=== PATIENT | female | born 1955 | race Caucasian/White ===

== ENCOUNTER 2019-07-22 18:04 | Emergency (ER) | payer OTHER ==
[~2019-07-22] VITALS: Ht 170.2 cm; Wt 81.6 kg
[2019-07-22] MEDS ORDERED: LIDOCAINE 1% (LOCAL ANESTH.) PF 5ml SDV ID ONE (20:15)
[2019-07-22] MEDS ORDERED: BACITRACIN TOP OINT 1 UD PKG TOP ONE (20:15)
[2019-07-22] MEDS ORDERED: LIDOCAINE 1% HCL (LOCAL ANESTH.) INJ 20ML MDV ONE (20:18)
[2019-07-22] MEDS ORDERED: KETOROLAC TROMETH 60MG/2ML VIAL IM ONE (23:00)
[2019-07-22] MEDS ORDERED: THIAMINE 100mg/ml INJ (200mg/2ml VIAL) IM ONE (23:15)
[2019-07-22] MEDS ORDERED: HYDROmorphone HCL 2 MG/ML VL IM ONE (23:15)
[2019-07-22 23:45] LABS: Basophils # (auto) 0.1 10 ^3/uL (0-0.2); Basophils % (auto) 0.8 % (0.0-2.0); Eosinophils # (auto) 0 10 ^3/uL (0-0.8); Eosinophils % (auto) 0.6 % (0.0-7.0); Hematocrit 42.5 % (36.0-46.0); Hemoglobin 14.2 g/dL (12.2-16.2); Lymphocytes # (auto) 1.5 10 ^3/uL (0.4-5.4); Mean Corpuscular Hemoglobin 36.9 pg (28.0-32.0); Mean Corpuscular Hgb Conc. 33.3 g/dL (32.0-36.0); Mean Corpuscular Volume 110.7 fL (80.0-100.0); Monocytes # (auto) 0.5 10 ^3/uL (0-1.3); Monocytes % (auto) 7.1 % (0.0-12.0); Neutrophils # (auto) 4.9 10 ^3/uL (1.6-8.6); Neutrophils % (auto) 70.5 % (37.0-80.0); Platelet Count (auto) 171 10^3/uL (140-450); Red Blood Cells 3.84 10^6/uL (4.0-5.20); Red Cell Distribution Width 14.7 % (11.8-14.3); White Blood Cell 6.9 10^3/uL (4.4-10.8)
[2019-07-23 00:01] LABS: INR 1.06 (0.9-1.15); Partial Thromboplastin Time 27.6 sec (23.64-32.05)
[2019-07-23 00:04] LABS: Albumin 3.7 g/dL (3.4-5.0); BUN/Creatinine Ratio 18.3; Calcium 8.5 mg/dL (8.5-10.1); Potassium 4.1 mmol/L (3.5-5.1)
[2019-07-23 00:07] LABS: Bilirubin, Total 1.4 mg/dL (0.2-1.0); Total Protein 7.4 g/dL (6.4-8.2)
[2019-07-23 01:14] VITALS: BP 148/94
== END 2019-07-23 01:40 | disposition short-term general hospital (02) ==
LOC: ER 18:04
DX: S01.81XA Laceration without foreign body of other part of head, initial encounter (principal); W22.8XXA Striking against or struck by other objects, initial encounter; Y93.89 Activity, other specified; Y92.89 Other specified places as the place of occurrence of the external cause; Y99.8 Other external cause status
CPT/HCPCS: 12013; 36415; 70450; 70486; 72125; 80053; 85025; 85610; 85730; 96372; 99285; J1170; J2001; J3411

== ENCOUNTER 2020-09-10 00:53 | Emergency (ER) | payer OTHER ==
[~2020-09-10] VITALS: Ht 167.6 cm; Wt 74.8 kg
[2020-09-10 02:41] LABS: Eosinophils # (auto) 0.4 10 ^3/uL (0-0.8); Hemoglobin 14.6 g/dL (12.2-16.2); Red Cell Distribution Width 14.8 % (11.8-14.3)
[2020-09-10 02:43] LABS: Basophils # (auto) 0.2 10 ^3/uL (0-0.2); Basophils % (auto) 2.5 % (0.0-2.0); Eosinophils % (auto) 4.8 % (0.0-7.0); Hematocrit 41.9 % (36.0-46.0); Lymphocytes # (auto) 2.8 10 ^3/uL (0.4-5.4); Lymphocytes % (auto) 35.1 % (10.0-50.0); Mean Corpuscular Hemoglobin 35.3 pg (28.0-32.0); Mean Corpuscular Hgb Conc. 34.8 g/dL (32.0-36.0); Mean Corpuscular Volume 101.6 fL (80.0-100.0); Monocytes # (auto) 0.5 10 ^3/uL (0-1.3); Monocytes % (auto) 6.3 % (0.0-12.0); Neutrophils % (auto) 51.3 % (37.0-80.0); Nucleated Red Blood Cells % 0.1 %; Platelet Count (auto) 302 10^3/uL (140-450); Red Blood Cells 4.13 10^6/uL (4.0-5.20); White Blood Cell 7.8 10^3/uL (4.4-10.8)
[2020-09-10] MEDS ORDERED: SODIUM CHLORIDE 0.9% 1,000 ML IV ONE ×3 (02:45→11:15)
[2020-09-10 03:01] LABS: Albumin 3.9 g/dL (3.4-5.0); BUN/Creatinine Ratio 11.7; Calcium 9.1 mg/dL (8.5-10.1); Potassium 4.2 mmol/L (3.5-5.1)
[2020-09-10 03:06] LABS: Bilirubin, Total 0.4 mg/dL (0.2-1.0); Total Protein 7.5 g/dL (6.4-8.2)
[2020-09-10 07:32] LABS: Amphetamine Screen, Urine NEGATIVE (NEGATIVE); Barbiturate Scree,Urine NEGATIVE (NEGATIVE); Benzodiazephine Screen, Urine NEGATIVE (NEGATIVE); Cannabinoid Screen, Urine NEGATIVE (NEGATIVE); Cocaine Screen, Urine NEGATIVE (NEGATIVE); Opiate Scree,Urine NEGATIVE (NEGATIVE); Phencyclidine Screen, Urine NEGATIVE (NEGATIVE)
[2020-09-10 12:15] VITALS: BP 131/98
== END 2020-09-10 12:21 | disposition home or self-care (01) ==
LOC: EDBD 00:53 → ER 00:59
DX: S51.011A Laceration without foreign body of right elbow, initial encounter (principal); F10.129 Alcohol abuse with intoxication, unspecified; Y90.9 Presence of alcohol in blood, level not specified; W19.XXXA Unspecified fall, initial encounter; Y93.89 Activity, other specified; Y92.89 Other specified places as the place of occurrence of the external cause; Y99.8 Other external cause status
CPT/HCPCS: 36415; 70450; 80053; 80307; 80320; 85025; 85049; 96360; 96361; 99285; J7030

== ENCOUNTER 2022-09-25 21:28 | Emergency (ER) | payer OTHER ==
[~2022-09-25] VITALS: Ht 165.1 cm; Wt 63.6 kg
[2022-09-25 22:00] VITALS: PULSE 101; RESP 34; O2SAT 93
[2022-09-25] MEDS ORDERED: SODIUM CHLORIDE 0.9% 1,000 ML IVB ONE (22:00)
[2022-09-25] MEDS ORDERED: ONDANSETRON HCL 4 MG/2 ML VIAL IV ONE (22:00)
[2022-09-25] MEDS ORDERED: fentaNYL CITRATE 100 MCG/2 ML VL IV ONE (22:00)
[2022-09-25] MEDS ORDERED: PANTOPRAZOLE 40 MG/10 ML VIAL INJ IV ONE (23:15)
[2022-09-25] MEDS ORDERED: PROPOFOL 10 MG/ML 20 ML IV ONE (23:15)
[2022-09-26] MEDS ORDERED: ceFAZolin 1GM/50ML 50 ML IV ONE
[2022-09-26 00:13] LABS: BUN/Creatinine Ratio 7.8 (10.0-20.0); Potassium 3.7 mmol/L (3.5-5.1)
[2022-09-26 00:14] LABS: Albumin 3.9 g/dL (3.4-5.0); Basophils # (auto) 0.1 10 ^3/uL (0-0.2); Basophils % (auto) 1.1 % (0.0-2.0); Bilirubin, Total 0.4 mg/dL (0.2-1.0); Calcium 8.8 mg/dL (8.5-10.1); Eosinophils # (auto) 0.2 10 ^3/uL (0-0.8); Eosinophils % (auto) 2.6 % (0.0-7.0); Hemoglobin 14.2 g/dL (12.2-16.2); Lymphocytes # (auto) 2.3 10 ^3/uL (0.4-5.4); Lymphocytes % (auto) 28.6 % (10.0-50.0); Magnesium 1.8 mg/dL (1.6-2.6); Mean Corpuscular Hemoglobin 33.2 pg (28.0-32.0); Mean Corpuscular Hgb Conc. 33.9 g/dL (32.0-36.0); Mean Corpuscular Volume 97.9 fL (80.0-100.0); Monocytes # (auto) 0.6 10 ^3/uL (0-1.3); Monocytes % (auto) 7.8 % (0.0-12.0); Neutrophils # (auto) 4.9 10 ^3/uL (1.6-8.6); Neutrophils % (auto) 59.9 % (37.0-80.0); Nucleated Red Blood Cells % 0.1 %; Red Blood Cells 4.29 10^6/uL (4.0-5.20); Red Cell Distribution Width 14.3 % (11.8-14.3); Total Protein 7.2 g/dL (6.4-8.2); White Blood Cell 8.2 10^3/uL (4.4-10.8)
[2022-09-26] MEDS ORDERED: TETANUS-DIPTH-ACEL PERTUSSIS 0.5ML SYR Tdap IM ONE (00:30)
[2022-09-26] MEDS ORDERED: fentaNYL CITRATE 100 MCG/2 ML VL IV ONE ×3 (00:45→05:45)
[2022-09-26 02:01] LABS: INR 0.99 (0.9-1.15); Partial Thromboplastin Time 32.4 SEC (24.5-34.5)
[2022-09-26 03:58] LABS: % Iron Saturation 22.4 % (15-50)
[2022-09-26 06:44] LABS: Urine Bacteria NONE SEEN /hpf (None Seen); Urine Blood Negative /uL (Negative); Urine Hyaline Cast MOD /lpf (0 - 2); Urine Mucus FEW (None Seen); Urine Specific Gravity 1.015 (1.001-1.035); Urine WBC 1 /hpf (0 - 5)
[2022-09-26 07:03] LABS: Amphetamine Screen, Urine NEGATIVE (NEGATIVE); Barbiturate Scree,Urine NEGATIVE (NEGATIVE); Cannabinoid Screen, Urine POSITIVE (NEGATIVE); Opiate Scree,Urine NEGATIVE (NEGATIVE); Phencyclidine Screen, Urine NEGATIVE (NEGATIVE)
[2022-09-26 07:10] LABS: Benzodiazephine Screen, Urine NEGATIVE (NEGATIVE); Cocaine Screen, Urine NEGATIVE (NEGATIVE)
[2022-09-26 08:00] VITALS: PULSE 97; RESP 12; O2SAT 98
[2022-09-26] MEDS ORDERED: HYDROcodone-ACET 5/325MG TAB PO ONE (08:30)
[2022-09-26 09:17] VITALS: BP 127/65; PULSE 91; RESP 22; TEMP 98.4; O2SAT 93
[2022-09-28 09:26] LABS: Ferritin 98.6 ng/mL (10-322)
[2022-09-28 09:27] LABS: Folate (Folic Acid) 7.09 ng/mL (5.38-24)
== END 2022-09-26 10:19 | disposition short-term general hospital (02) ==
LOC: EDBD 21:28 → ER 21:28
DX: S82.432A Displaced oblique fracture of shaft of left fibula, initial encounter for closed fracture (principal); I10 Essential (primary) hypertension; F17.210 Nicotine dependence, cigarettes, uncomplicated; W18.39XA Other fall on same level, initial encounter; Y93.89 Activity, other specified; Y92.098 Other place in other non-institutional residence as the place of occurrence of the external cause; Y99.8 Other external cause status
CPT/HCPCS: 27810; 36415; 71045; 73590; 73610; 80053; 80307; 80320; 81001; 82607; 82728; 82746; 83540; 83550; 83615; 83735; 85025; 85045; 85384; 85610; 85730; 86850; 86900; 86901; 86920; 90471; 90715; 96361; 96365; 96375; 96376; 99152; 99285; C9113; J0690; J2405; J2704; J3010; J7030